=== PATIENT | male | born 1960 | race Caucasian/White ===

== ENCOUNTER → 2017-11-20 15:40 | Outpatient (CLI) | payer SELFPAY ==
--- NOTE | 2017-11-20 | DI.RAD.S_ITS ---
PROCEDURE: XR KNEE LT 3V INDICATIONS: LEFT KNEE PAIN TECHNIQUE: 3 -views of the knee were acquired. COMPARISON: None. FINDINGS: Bones: No fractures or dislocations. No suspicious bony lesions. Mild narrowing of the medial joint space and mild degenerative spurring. Soft tissues: Trace joint effusion. No suspicious soft tissue calcifications. IMPRESSION: Mild degenerative joint disease. Dictated by: Salvador Feliciano M.D. on 11/20/2017 at 16:51 Approved by: Salvador Feliciano M.D. on 11/20/2017 at 16:52
== END ==
PROVIDERS: PCP Family Medicine; Visit Provider Family Medicine
DX: M25.562 Pain in left knee (principal); M17.12 Unilateral primary osteoarthritis, left knee
CPT/HCPCS: 73562

== ENCOUNTER → 2021-03-22 15:23 | Outpatient (CLI) | payer OTHER, SELFPAY ==
--- NOTE | 2021-03-22 | DI.RAD.S_ITS ---
PROCEDURE: XR KNEE LT 3V INDICATIONS: LEFT KNEE PAIN TECHNIQUE: 3 views of the knee were acquired. COMPARISON: [facility], , XR KNEE LT 3V, 11/20/2017, 15:20. FINDINGS: Bones: No fractures or dislocations. Mild to moderate medial femoral tibial compartment osteoarthritic changes are seen. No suspicious bony lesions. Soft tissues: Moderate suprapatellar joint effusion is seen. No suspicious soft tissue calcifications. IMPRESSION: Mild to moderate medial femoral tibial compartment osteoarthritis and moderate suprapatellar joint effusion. No fracture or dislocation. Dictated by: Scott Aldana M.D. on 03/22/2021 at 17:10 Approved by: Scott Aldana M.D. on 03/22/2021 at 17:11
== END ==
PROVIDERS: PCP Family Medicine; Referring Provider Family Medicine; Visit Provider Family Medicine
DX: M25.562 Pain in left knee (principal); M17.12 Unilateral primary osteoarthritis, left knee; M25.462 Effusion, left knee
CPT/HCPCS: 73562

== ENCOUNTER → 2023-06-07 15:36 | Outpatient (CLI) | payer OTHER, SELFPAY ==
--- NOTE | 2023-06-07 15:41 | DI.RAD.S_ITS ---
PROCEDURE: XR KNEE STANDING BI INDICATIONS: knee pain TECHNIQUE: Three views of the right knee and one view of the left knee. COMPARISON: [facility], CR, XR KNEE LT 3V, 03/22/2021, 15:19. [facility], CR, XR KNEE LT 3V, 11/20/2017, 15:20. FINDINGS: Bones: No acute fractures or dislocations. Patellar alignment is normal on the sunrise view. No suspicious bony lesions. Tricompartmental joint space narrowing with associated osteophytosis. Soft tissues: Large knee joint effusions. No suspicious soft tissue calcification. IMPRESSION: [id number] tricompartmental osteoarthritis. Kellgren-Galileo Grade 2. Large knee joint effusion. Internal derangement is not excluded. Dictated by: Mark Nava M.D. on 06/07/2023 at 16:27 Approved by: Mark Nava M.D. on 06/07/2023 at 16:28
== END ==
LOC: RAD 15:39
PROVIDERS: PCP Family Medicine; Referring Provider Family Medicine; Visit Provider Family Medicine
DX: M25.561 Pain in right knee (principal); M17.10 Unilateral primary osteoarthritis, unspecified knee; M25.469 Effusion, unspecified knee
CPT/HCPCS: 73562

== ENCOUNTER → 2023-07-29 15:50 | Outpatient (CLI) | payer OTHER, SELFPAY ==
--- NOTE | 2023-07-29 | DI.MRI.S_ITS ---
PROCEDURE: MR KNEE RT WO CON INDICATIONS: STRAIN OF RIGHT KNEE TECHNIQUE: Noncontrast sagittal PD fast spin echo and T2 fast spin echo with fat saturation, sagittal 3-D FLASH with fat saturation; coronal T1 spin echo and PD fast spin echo with fat saturation, and axial PD fast spin echo with fat saturation through the knee. COMPARISON: [facility], XR KNEE 1 OR 2 VIEWS BILATERAL, 11/30/2017, 15:18. [facility], CR, XR KNEE STANDING BI, 06/07/2023, 15:55. FINDINGS: Image quality: Excellent. Menisci: There is lateral meniscal extrusion. There is complex tear involving the anterior horn of the lateral meniscus. Horizontal tear is also seen in the posterior horn and body of the lateral meniscus. There is ramp tear of the peripheral aspect of the posterior horn of the medial meniscus. Cruciate ligaments: The anterior and posterior cruciate ligaments appear intact. Medial structures: The medial collateral ligament appears intact. The semimembranosus tendon insertions and meniscocapsular junction appear intact. Visualized portions of the pes anserinus tendons appear normal. No abnormal bursal fluid. Lateral structures: The lateral collateral ligament and the biceps femoris tendon appear intact. The popliteus tendon appears normal. Iliotibial band appears normal. Anterior structures: The quadriceps and patellar tendons appear intact. Mild quadriceps tendinosis Patellar alignment is normal. No femoral trochlear dysplasia or ventral trochlear prominence. No edema in the infrapatellar fat pad. Bones and cartilage: No bone marrow contusions or fractures. Tricompartmental cartilage thinning and fibrillation, most pronounced in the patellofemoral compartment. Joint space: There is moderate knee joint effusion. No Stein's cyst. Normal appearing synovial plicae are incidentally noted. IMPRESSION: 1. Lateral meniscal extrusion and complex tear of the lateral meniscus. 2. Ramp tear of the posterior horn of the medial meniscus. 3. Tricompartmental cartilage thinning and fibrillation, most pronounced in the patellofemoral compartment. 4. Moderate knee joint effusion. 5. Low-grade quadriceps tendinosis. Dictated by: Hannah Durbin M.D. on 07/31/2023 at 10:17 Approved by: Hannah Durbin M.D. on 07/31/2023 at 10:28
== END ==
LOC: MRI 15:51
PROVIDERS: PCP Family Medicine; Referring Provider Family Medicine; Visit Provider Family Medicine
DX: S83.271A Complex tear of lateral meniscus, current injury, right knee, initial encounter (principal); S83.241A Other tear of medial meniscus, current injury, right knee, initial encounter; M25.461 Effusion, right knee
CPT/HCPCS: 73721

== ENCOUNTER → 2024-09-25 11:35 | Outpatient (CLI) | payer OTHER, SELFPAY ==
--- NOTE | 2024-09-25 11:37 | DI.RAD.S_ITS ---
PROCEDURE: XR HAND RT MIN 3V INDICATIONS: Pain in right finger(s) TECHNIQUE: 4 views of the hand(s) acquired. COMPARISON: None. FINDINGS: Bones: No fractures or dislocations. Moderate osteoarthritic degenerative change of the trapeziometacarpal joint includes joint space narrowing, marginal osteophytosis and subchondral sclerosis. Carpal bones are normally aligned. No suspicious bony lesions. Soft tissues: No suspicious soft tissue calcifications. IMPRESSION: Degenerative change of the TMC joint without evidence of acute bony abnormality. Dictated by: Yannick Fajardo M.D. on 09/26/2024 at 3:06 Approved by: Yannick Fajardo M.D. on 09/26/2024 at 3:10
== END ==
PROVIDERS: PCP Family Medicine; Referring Provider Family Medicine; Visit Provider Family Medicine
DX: M79.644 Pain in right finger(s) (principal); G89.29 Other chronic pain
CPT/HCPCS: 73130

== ENCOUNTER 2024-11-28 12:30 | Day surgery (SDC) | payer OTHER, SELFPAY ==
[2024-11-28 13:03] VITALS: BP 142/87; PULSE 68; RESP 15; TEMP 36.6; O2SAT 98
[2024-11-28] MEDS: LACTATED RINGERS 1,000 ML 42 ML IV (13:14)
--- NOTE | 2024-11-28 13:26 | PM.HP.IH.1 ---
History of Present Illness History of Present Illness Date Patient Seen: 11/28/24 Time Patient Seen: 13:26 Chief complaint: Colonoscopy Narrative: Herrera is a 63-year-old man who presents for a screening colonoscopy. He last had colonoscopy at age 49 or 14 years ago that was normal. No known family colon cancer. PFSH Social History Smoking Status: Current every day smoker alcohol intake: current Meds Home Medications and Allergies Home Medications ?Medication ?Instructions ?Recorded ?Confirmed ?Type atorvastatin 20 mg tablet 20 mg PO DAILY 11/28/24 11/28/24 History meloxicam 15 mg tablet 15 mg PO DAILY 11/28/24 11/28/24 History Allergies Allergy/AdvReac Type Severity Reaction Status Date / Time No Known Drug Allergies Allergy Verified 11/28/24 13:00 Exam Vital Signs (past 8 hours): - 11/28/24 13:03 Temperature 98 F Pulse Rate 68 Respiratory Rate 15 Blood Pressure 142/87 H Pulse Oximetry 98 Oxygen Delivery Method Room Air Oxygen Delivery Method Room Air Const General: healthy appearing Assessment & Plan Assessment and plan (1) Colon cancer screening: Status: Acute Plan Colonoscopy Time-Based Coding :: [TOTAL MINUTES] spent with patient and on the chart (including review of chart, obtaining history, exam, reviewing outside data, placing orders, documenting exam and treatment plan, and counseling patient) on [DATE]. PROFEE Provider Relations Consultant Document charge(s): No
[2024-11-28 14:20] VITALS: BP 111/65; PULSE 52; RESP 16; TEMP 36.2; O2SAT 98
--- NOTE | 2024-11-28 14:24 | PM.OP.COLON ---
Operative Date/Time/Diagnoses Date of procedure: 11/28/24 Time of procedure: 14:24 Pre-op diagnosis: Colon cancer screening Post-op diagnosis: same Procedure & Clinicians Study performed: Colonoscopy Same procedure(s) as scheduled: Yes Surgeon: Maciej Vick Anesthesia Type: MAC +/- Procedure Notes Procedure in detail: Surgeon: Maciej Vick MD Anesthesia: Deanna Reaves CRNA Procedure: The patient was brought to the endoscopy suite, placed in left lateral decubitus position. The patient was connected to monitoring devices. A time-out was performed. Sedation was administered. Once the patient was adequately sedated, a digital rectal exam was performed and was normal. The scope was then inserted and advanced to the cecum where the appendiceal orifice was identified and photographed. The scope was then slowly withdrawn over greater than 6 minutes. The mucosa was thoroughly inspected. No polyps were found. The scope was retroflexed in the rectum. The scope was straightened and removed. The patient was awakened and brought to recovery. Scope withdrawal time: 7 minutes Sedation time: 11 minutes EBL: 0 Findings: Normal colon Post-procedure Recommendations: Colonoscopy in 10 years Disposition: PACU
[2024-11-28 14:25] VITALS: BP 111/65; PULSE 51; RESP 16; O2SAT 98
[2024-11-28 14:30] VITALS: BP 112/77; PULSE 61; RESP 16; O2SAT 100
[2024-11-28 14:34] VITALS: BP 133/83; PULSE 68; RESP 16; TEMP 36.1; O2SAT 98
== END 2024-11-28 14:50 | disposition home or self-care (01) ==
PROVIDERS: PCP Family Medicine; Referring Provider Family Medicine; Visit Provider Surgery
PROC: 0DJD8ZZ Inspection of Lower Intestinal Tract, Via Natural or Artificial Opening Endoscopic (ICD-10-PCS; CPT 45378; principal; 2024-11-28 14:00)
DX: Z12.11 Encounter for screening for malignant neoplasm of colon (principal); F17.210 Nicotine dependence, cigarettes, uncomplicated
CPT/HCPCS: 45378; J2704

== ENCOUNTER → 2025-03-18 12:33 | Outpatient (CLI) | payer OTHER, SELFPAY ==
--- NOTE | 2025-03-18 12:35 | DI.RAD.S_ITS ---
PROCEDURE: XR CERVICAL SPINE 5V INDICATIONS: Anesthesia of skin, degenerative changes TECHNIQUE: 5 views of the cervical spine acquired. COMPARISON: None. FINDINGS: Multilevel degenerative changes throughout the cervical spine with disc space narrowing, osteophytes, uncovertebral and facet hypertrophic changes most notably at C4-5, C5-6, C6-7 with moderate bilateral neural foraminal narrowing at these levels. On the lateral image C7-T1 is not well evaluated due to overlap from the shoulders. However on the oblique images C7-T1 appears grossly within normal limits. Straightening of the normal cervical lordosis. No radiographic evidence of fracture, subluxation or abnormal prevertebral soft tissue swelling. Mild vascular calcifications at the expected location of the carotid bifurcations and aortic arch partially imaged. IMPRESSION: Degenerative changes as discussed above. If symptoms persist or worsen, or there is high clinical suspicion of cervical abnormality, MRI could be performed. Dictated by: Sadiq Jim M.D. on 03/19/2025 at 14:00 Approved by: Sadiq Jim M.D. on 03/19/2025 at 14:03
== END ==
PROVIDERS: PCP Family Medicine; Referring Provider Family Medicine; Visit Provider Family Medicine
DX: M47.812 Spondylosis without myelopathy or radiculopathy, cervical region (principal); M48.02 Spinal stenosis, cervical region; R20.0 Anesthesia of skin
CPT/HCPCS: 72050